=== PATIENT | male | born 1955 | race Two or more races ===

== ENCOUNTER 2023-06-18 15:50 | Emergency (ER) | payer OTHER ==
[~2023-06-18] VITALS: Ht 165.1 cm; Wt 113.4 kg
[2023-06-18] MEDS ORDERED: CARDIZEM30 MG (16:29)
[2023-06-18] MEDS ORDERED: ELIQUIS2.5 MG (16:29)
[2023-06-18] MEDS ORDERED: COZAAR25 MG (16:30)
[2023-06-18] MEDS ORDERED: CARAFATE1 GM PO (21:55)
[2023-06-18] MEDS ORDERED: PEPCID AC20 MG PO (21:57)
[2023-06-18] MEDS ORDERED: ZEGERID OTC 201 EACH PO (21:57)
== END 2023-06-18 22:02 | disposition home or self-care (01) ==
LOC: ER 15:51
DX: K21.9 Gastro-esophageal reflux disease without esophagitis (principal); I10 Essential (primary) hypertension; Z87.09 Personal history of other diseases of the respiratory system